=== PATIENT | female | born 1955 | race Hispanic/Latino ===

== ENCOUNTER 2017-03-26 08:27 | Outpatient (CLI) | payer BC ==
--- NOTE | 2017-03-26 10:37 | Mammography Report ---
BILATERAL DIGITAL SCREENING MAMMOGRAM with CAD: 03/26/17 08:27:00 CLINICAL: Routine screening. COMPARISON:01/24/16 and annual mammograms going back to 2008 FINDINGS: The breasts are peduncle a fatty with residual bilateral retroareolar heterogeneously dense fibroglandular densities. Bilateral intraparenchymal lymph nodes are unchanged compared to prior exams. A partially circumscribed left asymmetry is identified only on the CC view and is not apparent on comparisons.No architectural distortion or suspicious calcifications.The right breast is negative. IMPRESSION: Left asymmetry requiring further workup. BI-RADS CATEGORY: 0 -- Additional Imaging Evaluation Required RECOMMENDATION: Recall for left mediolateral and spot compression CC views and left breast ultrasound if needed. ACR BI-RADS MAMMOGRAPHIC CODES: 0 = Needs additional imaging evaluation; 1 = Negative; 2 = Benign; 3 = Probably benign; 4 = Suspicious; 5 = Malignant; 6 = Known biopsy-proven malignancy COMMENT: 1. Dense breast tissue, i.e., adenosis, fibrocystic changes, etc., may obscure an underlying neoplasm. 2. Approximately 10% of cancers are not detected with mammography. 3. A negative mammography report should not delay biopsy if a clinically suspicious mass is present. COMMENT: Patient follow-up letters are generated via our [employer] application.
== END 2017-03-26 08:28 | disposition home or self-care (01) ==
LOC: SPVWC 08:27
PROVIDERS: ATTEND Family Medicine
DX: Z12.31 Encounter for screening mammogram for malignant neoplasm of breast (principal)
CPT/HCPCS: 77067; G0202

== ENCOUNTER 2017-04-09 14:40 | Outpatient (CLI) | payer BC ==
--- NOTE | 2017-04-09 16:47 | Ultrasound Report ---
Diagnostic left mammogram and whole left breast ultrasound including all 4 quadrants and subareolar regions. History: Recall. Findings: The spot compression image in the CC projection confirms the presence of an ill-defined small nodular asymmetry measuring 6 mm in diameter. A somewhat similar density with the same size suspected at the 12:00 position on the 90 degree lateral medial view. An additional reniform nodular opacity in the lower outer quadrant has features typical of an intramammary lymph node. No additional focal findings are seen on the mammogram. Whole breast ultrasound demonstrates multiple small complex lesions at the 12:00 position all of which demonstrate circumscribed margins and no acoustic shadowing. These measure 5 mm, 9 mm, and 2 mm in diameter respectively, 2 cm from the nipple, 4 cm from the nipple, and subareolar region. At the 3:00 position, there is a complex lesion which has a fatty hilum consistent with the nodular density seen mammographically. This represents an intramammary node. Impression: Multiple subcentimeter complex lesions are seen at the 12:00 position as detailed above. These all have benign features. At the 3:00 position, an intramammary lymph node is noted. BI-RADS code: 3. Recommendation: 6 month followup left mammogram and left breast ultrasound are recommended.
== END 2017-04-09 14:41 | disposition home or self-care (01) ==
LOC: MAMMO 14:40
PROVIDERS: ATTEND Family Medicine
DX: N64.89 Other specified disorders of breast (principal)
CPT/HCPCS: 76641; G0206